=== PATIENT | male | born 1960 | race Caucasian/White ===

== ENCOUNTER → 2018-01-26 | Outpatient (CLI) | payer OTHER ==
[2018-01-26 18:36] LABS: ALT/SGPT 38 U/L (12-78); BLOOD UREA NITROGEN 13 mg/dl (7-18); CALCIUM 8.9 mg/dl (8.5-10.1); CARBON DIOXIDE 27 mmol/L (21-32); CREATININE 0.88 mg/dl (0.60-1.40); GLUCOSE 339 mg/dl (70-99); POTASSIUM 3.7 mmol/L (3.5-5.1); SODIUM 137 mmol/L (136-145)
[2018-01-26 18:42] LABS: CREATININE RANDOM URINE 86.3 mg/dl
[2018-01-26 18:46] LABS: CHOLESTEROL 138 mg/dl (0-200)
[2018-01-27 06:57] LABS: HEMOGLOBIN A1C 11.3 % (4.5-5.6)
== END | disposition home or self-care (01) ==
LOC: C.LABMFLN 11:14
PROVIDERS: ATTEND Family Medicine
DX: E11.9 Type 2 diabetes mellitus without complications (principal); E78.5 Hyperlipidemia, unspecified; F41.8 Other specified anxiety disorders; I10 Essential (primary) hypertension

== ENCOUNTER 2025-05-07 06:25 | Inpatient (IN) ==
--- NOTE | 2025-04-26 10:27 | Anesthesiology Consultation ---
Date of Service April 26, 2025 Assessment & Plan Chart Review Chart Review: Acceptable Risk for Surgery and Patient NOT seen in Pre Admission Testing Consults Requested none History Surgery Operation Date: 05/07/25 08:00 Proposed Procedures p Bilateral Angio with Lower Iliac Stenting - Allen Slaughter MD s Bilateral Lower Common Femoral Endarterectomy - Allen Slaughter MD Height/Weight Height: 5 ft 11 in Weight: 90.718 kg Allergies Allergy/AdvReac Type Severity Reaction Status Date / Time clonazepam AdvReac Intermediate Hx Verified 04/22/25 13:43 addiction gabapentin AdvReac Intermediate Weakness, Uncoded 04/22/25 13:43 fall, brain fog on 600mg QID Medications Home Medications Medication Instructions Recorded Confirmed Last Taken aspirin 81 mg tablet 81 mg PO DAILY 05/08/19 04/22/25 02/28/25 tadalafil 20 mg tablet (Cialis) 20 mg PO DAILY PRN sexual activity 02/03/22 04/22/25 Unknown #14 tabs blood sugar diagnostic (OneTouch #100 ea 02/18/22 02/13/25 Unknown Verio test strips) blood-glucose meter (OneTouch #1 ea 02/18/22 02/13/25 Unknown Verio Meter) glipizide 10 mg tablet, extended 10 mg PO DAILY #90 tabs 03/09/24 04/22/25 Unknown release 24 hr lancets 33 gauge #100 ea 03/09/24 02/13/25 Unknown paroxetine HCl 40 mg tablet 80 mg (2 x 40 mg) PO DAILY #180 05/08/24 04/22/25 Unknown tabs nitroglycerin 0.4 mg sublingual 0.4 mg sublingual Q5M PRN chest 06/29/24 04/22/25 Unknown tablet pain #20 tabs semaglutide 0.25 mg or 0.5 mg (2 0.25 mg (0.368 mL) subcut Q7D 90 08/13/24 04/22/25 Unknown mg/3 mL) subcutaneous pen injector days #4.784 mL insulin degludec 100 unit/mL (3 60 unit (0.6 mL) subcut DAILY 12/28/24 04/22/25 Unknown mL) subcutaneous pen (Tresiba E11.9 #15 mL FlexTouch U-100 insulin) pen needle, diabetic 32 gauge x #100 ea 12/31/24 02/13/25 Unknown 5" (BD Ultra-Fine Jacinta Pen Needle) cilostazol 50 mg tablet 50 mg PO BID #180 tabs 03/06/25 04/22/25 Unknown omeprazole 40 mg capsule,delayed 40 mg PO DAILY #90 caps 03/13/25 04/22/25 Unknown release clopidogrel 75 mg tablet 75 mg PO DAILY #90 tabs 03/14/25 04/22/25 Unknown rosuvastatin 40 mg tablet 40 mg PO DAILY #90 tabs 03/14/25 04/22/25 Unknown hydroxyzine pamoate 50 mg capsule 50 mg PO TID PRN anxiety #270 caps 03/20/25 04/22/25 Unknown varenicline tartrate 0.5 mg (11)-1 1 ea PO .COMPLEX #53 ea 03/29/25 04/22/25 Unknown mg (42) tablets in a dose pack varenicline tartrate 1 mg tablet 1 mg PO BID #56 tabs 03/29/25 04/22/25 Unknown tizanidine 6 mg capsule 6 mg PO HS #90 caps 04/12/25 04/22/25 Unknown hydrocodone 5 mg-acetaminophen 325 1 tab PO Q8H PRN pain #90 tabs 04/16/25 04/22/25 Unknown mg tablet lisinopril 40 mg tablet 40 mg PO DAILY #90 tabs 04/17/25 04/22/25 Unknown metformin 850 mg tablet 850 mg PO BID 04/22/25 04/22/25 Unknown carvedilol 25 mg tablet 25 mg PO BID #180 tabs 04/23/25 Unknown Past Medical History Medical History (Updated 04/22/25 @ 14:19 by Crista Lang RN) On anticoagulant therapy Plavix daily Dyslipidemia Acid reflux disease CAD in [place] artery Depression with anxiety Diabetic neuropathy HTN (hypertension) Splenic hemorrhage pt denies this/ not aware Osteoarthritis Thoracic radiculopathy due to osteoarthritis of spine Presence of stent in LAD coronary artery Presence of stent in left circumflex coronary artery Diabetes PAD (peripheral artery disease) Restless legs syndrome (RLS) History of shingles ~2020 Hx of myocardial infarction 2004 and 2005 Asthma no inhalers Left rib fracture hx ~2019 Past Family History Family History Brother Myocardial infarction Son Asthma Depression Anxiety Denies family history of Ovarian cancer Prostate cancer Diabetes Alzheimer disease Bipolar disorder Heart disease Kidney disease Breast cancer Lung cancer COPD (chronic obstructive pulmonary disease) Colorectal cancer Hypertension Colonic polyp Stroke Past Surgical History Surgical History S/P right coronary artery (RCA) stent placement History of tonsillectomy and adenoidectomy History of cardiac cath following [place]- 2003 x 2 stents and 2004 x 1 stent - [facility] History of coronary artery stent placement Follows w/ Dr Smith Social History Smoking Status: Current every day smoker tobacco type: cigarettes Smoking cigarettes per day: 10 per day - advised Do You Dip or Chew Tobacco: No Hx Alcohol Use: No Hx Substance Use: No substance use type: does not use
[2025-05-07] MEDS ORDERED: fentaNYL citrate PF 100 MCG/2 ML VIAL ONE ×3 (07:06→13:10)
[2025-05-07] MEDS: SODIUM CHLORIDE 0.9% 1,000 ML IV SCH ×2 (07:06→16:18)
[2025-05-07] MEDS ORDERED: ROCURONIUM BROMIDE 10 MG/ML 5 ML VIAL IV ONE (07:06)
[2025-05-07] MEDS ORDERED: MIDAZOLAM HCL 1 MG/ML 2ML VIAL ONE (07:06)
[2025-05-07] MEDS ORDERED: GLYCOPYRROLATE 0.2 MG/ML VIAL ONE (07:06)
[2025-05-07] MEDS ORDERED: DEXAMETHASONE SOD INJ 4 MG/ML VIAL ONE (07:06)
[2025-05-07] MEDS ORDERED: PROPOFOL IV EMULSION 10 MG/ML 20 ML VIAL IV ONE (07:06)
[2025-05-07] MEDS ORDERED: SUGAMMADEX SODIUM 200 MG/2 ML VIAL IV ONE (07:06)
[2025-05-07] MEDS ORDERED: ONDANSETRON INJ 2 MG/ML 2 ML VIAL ONE (07:06)
[2025-05-07] MEDS ORDERED: LIDOCAINE 2% 2 ML VIAL/AMP(20MG/ML) INFIL ONE (07:06)
[2025-05-07 07:12] LABS: BUN Creatinine Ratio 11.4 (10-20); Calcium 9.2 mg/dl (8.6-10.3); Creatinine Clr Calc Pharmacy 112.2 ml/min; Potassium 3.9 mmol/L (3.5-5.1)
--- NOTE | 2025-05-07 07:43 | History & Physical Report ---
Date of Service May 07, 2025 History of Present Illness Primary Care Provider: Cristiano Borrero DO Name: JAZ MAURICIO Patient Number: [id number] : 1960 Date of Service: 04/10/2025 Chief Complaint: _New patient consultation for peripheral arterial disease and aortoiliac disease HPI: _Mr. Mauricio is an elderly male who presents to Dr. Slaughter vascular surgery clinic today as a new patient in consultation for severe peripheral arterial disease and aortoiliac disease causing lifestyle limiting claudication. Patient states that he began having symptoms about 18 months ago. He describes this as a tightness/pain in his left calf which then migrates into his left thigh as well if continues ambulating. He has some discomfort in his right hip around the same time, but feels that his left leg is more limiting. He is able to ambulate less than 50 yards before needing to stop. He lives in a second story apartment, and has stopped leaving his apartment more than once a day due to having to climb 2 sets of stairs and the pain that he knows this will cause. After resting for 5 minutes or so, he is able to ambulate again. He has found this to be very limiting and his overall activity has significantly decreased. He smoked 2 packs a day for most of his adult life, and has only recently reduced that down to 10 cigarettes daily. He was started on cilostazol, but has not had any improvement with this medication. He denies nonhealing wounds or ulcerations, discoloration of his feet or toes, or rest pain at night. He denies headache, fever, chest pain, shortness of breath, abdominal pain, nausea, vomiting, other concerns. Review of systems: A total of 14 systems were reviewed and are negative aside from what is related in his HPI Imaging: Patient's CTA abdomen pelvis with runoff done at [facility] in December 2024 was reviewed, as well as his recent diagnostic aortogram/angiogram of the bilateral lower extremities. Images appear to confirm a proximal right common iliac artery stenosis, and bilateral common femoral artery severe stenoses, significantly worse in the left than the right. He does have bilateral SFA disease as well. Additionally he has two-vessel runoff to the feet. Current Home Meds: (Last Updated 04/10 08:00) PARoxetine 80 mg PO Daily HAZARDOUS MEDICATION | tablet: green | suspension: duane Lazaro 04/09 16:03 acetaminophen-hydrocodone (acetaminophen-hydrocodone 325 mg-5 mg oral tablet) 1 tab PO tid PRN: as needed for pain aspirin (aspirin 81 mg oral delayed release tablet) 81 mg PO Daily carvedilol 25 mg PO bid cilostazol (cilostazol 50 mg oral tablet) 50 mg PO bid clopidogrel (clopidogrel 75 mg oral tablet) 75 mg PO Daily glipiZIDE (glipiZIDE 10 mg oral tablet, extended release) 10 mg PO Daily hydrOXYzine 50 mg PO tid PRN: as needed for anxiety insulin degludec (Tresiba FlexTouch 100 units/mL subcutaneous solution) 60 unit subQ Daily lisinopril 40 mg PO Daily metFORMIN 850 mg PO bid nitroglycerin 0.4 mg SL q5min PRN: as needed for chest pain omeprazole 40 mg PO Daily rOPINIRole (rOPINIRole 0.25 mg oral tablet) 0.25 mg PO Daily rosuvastatin (rosuvastatin 10 mg oral tablet) 40 mg PO Daily semaglutide (semaglutide 0.25 mg/0.5 mL (0.25 mg dose) subcutaneous solution) 0.25 mg subQ q7days Wegovy tadalafil (tadalafil 20 mg oral tablet) 20 mg PO Daily PRN: as needed for erectile dysfunction tiZANidine 6 mg PO Daily traZODone 200 mg PO Daily Allergies and Sensitivities: gabapentin(weakness, fall) clonazePAM(addiction) Past Medical History: Problems: Aortoiliac stenosis Hypertension Hyperlipidemia Diabetes mellitus Tobacco abuse CAD (coronary artery disease) PAD (peripheral artery disease) Gastroesophageal reflux disease hypercholesterolemia Surgical history: Positive for cardiac catheterization with stent placement in 2004, tonsillectomy adenoidectomy Family history: Positive for brother with myocardial infarction, a son with asthma and depression/anxiety. His mother did have peripheral arterial disease and ended up with a leg amputation. Social history: Patient continues to smoke cigarettes daily, at this point smoking 10 cigarettes/day, previously smoking 2 packs a day. He denies alcohol or illicit drug use. He is currently and lives alone and is on disability. OBJECTIVE Vitals: Last Updated 04/10/25 08:09 Date Temp BP Location Pulse RR SpO2 Pain 04/10/25 134/80 Right Arm 61 94 04/10/25 150/78 Left Arm Vital Signs are the last 3 documented. No Orthostatic Data Available Height and Weight: Last Updated 04/10/25 08:09 Date BMI Wt(kg) Wt(lb) Method Ht(cm) (ft-in) Method 04/10/25 29.15 93.4 205 Standing Scale 179 5-10 Heights and Weights are the last 3 documented. Physical Exam Constitutional: In general patient is a healthy-appearing well-nourished well- developed elderly male in no distress. He is alert and oriented without any focal deficits. Head is normocephalic and atraumatic. Eyes are EOMI. Trachea is midline. Carotids do not demonstrate bruit. Heart is regular, lungs are decreased significantly throughout but clear bilaterally. Abdomen soft nontender with normoactive bowel sounds in all 4 quadrants. There is no pulsatile mass appreciable. Bilateral brachial and radial pulses are +3. Femoral pulses are nonpalpable, bilateral lower extremity pulses are nonpalpable. Right lower extremity capillary refill is 3 seconds, left lower extremity capillary refill is 5 seconds. He does continue to have hair growth on the feet bilaterally and there is no sign of distal ischemia or ulcerations. There is no edema ASSESSMENT: _ PLAN: _ 1 ) _peripheral arterial disease Patient does have severe femoral artery disease, with stenoses at his common femoral artery/proximal SFA's, which would likely benefit from femoral endarterectomies. Additionally he has a significant stenosis of his right common iliac artery on imaging. We would recommend that this undergo stenting, with the possibility to do bilateral kissing iliac stents if needed. Patient is in the office today with a family member. The bilateral SADDLE MAKER endarterectomy and angiogram with bilateral iliac stent placement procedure was discussed at length with the patient, as were the benefits, alternatives, and consequences of refusing the surgery. The risks of this procedure including but not limited to bleeding, infection, need for further surgery, vessel trauma, blood clots, loss of limb, , heart attack, reaction to medication or dye including allergic reaction or kidney failure, were discussed with the patient by myself at Dr. Slaughter's request. Patient expressed understanding and agreement to proceed. This will be scheduled in the near future at the patient's convenience. 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 Patient is advised to call with any questions or concerns. He is agreeable to this plan. Thank you for letting us participate in the care of this patient. I have personally spent_50__ minutes performing [id number] and [id number]-cgtt-fl-face activities on this date of service.Time does not include separately reported services. Activities Include: _x_ review of the medical record _x_ obtaining a history _x_ physical exam/evaluation __ review labs _x_ review radiology reports _x_ counseling/educating patient/family/caregiver _x_ discussion/referral to other healthcare professional x__ documenting care in the medical record __ independent interpretation of results __ communication of results to patient/family/caregiver _x_ coordination of care Signature Line Electronic Signature on File CC: Cristiano Borrero DO [facility] [address] [facility] [address] * CC: Balbir Viramontes MD [address] [facility] [address] * CC: Cielo Bone PA-C [facility] [address] [place] [address] [address] [facility] [id number] * Electronically Reviewed/Signed by: Torie Weston PA-C Author Signature Dt/Tm:04/10/2025 09:[address] [facility] [place] [place] [address] LM Result Type: HVI Outpt Note Date of Service: April 10, 2025 08:55 EDT Authorization Status: Final Author or Import Date: JONES Weston Lynn on April 10, 2025 09:12 EDT Verified By: JONES Weston Lynn on April 10, 2025 09:12 EDT Encounter info: [id number], [place] [address], Clinic, 04/10/2025 - 04/10/2025 Allergies Allergy/AdvReac Type Severity Reaction Status Date / Time clonazepam AdvReac Intermediate Hx Verified 05/07/25 06:47 addiction gabapentin AdvReac Intermediate Weakness, Uncoded 05/07/25 06:47 fall, brain fog on 600mg QID Home Medications Medication Instructions Recorded Confirmed Type aspirin 81 mg tablet 81 mg PO DAILY 05/08/19 05/07/25 History tadalafil 20 mg tablet (Cialis) 20 mg PO DAILY PRN sexual activity 02/03/22 05/07/25 Rx #14 tabs blood sugar diagnostic (OneTouch #100 ea 02/18/22 02/13/25 Rx Verio test strips) blood-glucose meter (OneTouch #1 ea 02/18/22 02/13/25 Rx Verio Meter) glipizide 10 mg tablet, extended 10 mg PO DAILY #90 tabs 03/09/24 05/07/25 Rx release 24 hr lancets 33 gauge #100 ea 03/09/24 02/13/25 Rx paroxetine HCl 40 mg tablet 80 mg (2 x 40 mg) PO DAILY #180 05/08/24 05/07/25 Rx tabs nitroglycerin 0.4 mg sublingual 0.4 mg sublingual Q5M PRN chest 06/29/24 05/07/25 Rx tablet pain #20 tabs semaglutide 0.25 mg or 0.5 mg (2 0.25 mg (0.368 mL) subcut Q7D 90 08/13/24 Rx mg/3 mL) subcutaneous pen injector days #4.784 mL insulin degludec 100 unit/mL (3 60 unit (0.6 mL) subcut DAILY 12/28/24 05/07/25 Rx mL) subcutaneous pen (Tresiba E11.9 #15 mL FlexTouch U-100 insulin) pen needle, diabetic 32 gauge x #100 ea 12/31/24 02/13/25 Rx 5/32" (BD Ultra-Fine Jacinta Pen Needle) cilostazol 50 mg tablet 50 mg PO BID #180 tabs 03/06/25 05/07/25 Rx omeprazole 40 mg capsule,delayed 40 mg PO DAILY #90 caps 03/13/25 05/07/25 Rx release clopidogrel 75 mg tablet 75 mg PO DAILY #90 tabs 03/14/25 05/07/25 Rx rosuvastatin 40 mg tablet 40 mg PO DAILY #90 tabs 03/14/25 05/07/25 Rx hydroxyzine pamoate 50 mg capsule 50 mg PO TID PRN anxiety #270 caps 03/20/25 05/07/25 Rx varenicline tartrate 0.5 mg (11)-1 1 ea PO .COMPLEX #53 ea 03/29/25 05/07/25 Rx mg (42) tablets in a dose pack varenicline tartrate 1 mg tablet 1 mg PO BID #56 tabs 03/29/25 05/07/25 Rx tizanidine 6 mg capsule 6 mg PO HS #90 caps 04/12/25 05/07/25 Rx hydrocodone 5 mg-acetaminophen 325 1 tab PO Q8H PRN pain #90 tabs 04/16/25 05/07/25 Rx mg tablet lisinopril 40 mg tablet 40 mg PO DAILY #90 tabs 04/17/25 05/07/25 Rx metformin 850 mg tablet 850 mg PO BID 04/22/25 05/07/25 History carvedilol 25 mg tablet 25 mg PO BID #180 tabs 04/23/25 05/07/25 Rx Past Med/Surg History Problem List (Updated 04/22/25 @ 14:19 by Crista Lang, [place]) PAD (peripheral artery disease) Claudication Bilateral calf pain Foot callus Type 2 diabetes mellitus with hyperlipidemia Tobacco use disorder Subacromial bursitis of both shoulders Left elbow pain Left hand pain Right hand pain Low back pain Presence of stent in left circumflex coronary artery Presence of stent in LAD coronary artery S/P right coronary artery (RCA) stent placement Subacromial bursitis of left shoulder joint Post herpetic neuralgia Herpes zoster virus infection of face and ear nerves Thoracic radiculopathy due to osteoarthritis of spine (Acute) Splenic hemorrhage (Acute) Restless legs syndrome (Acute) Pulpitis (Acute) Left shoulder pain (Acute) Inhibited sexual excitement (Acute) Hypertension (Acute) Erectile dysfunction (Acute) Diabetic neuropathy (Acute) Depression with anxiety (Acute) CAD in [place] artery (Acute) Acid reflux disease (Acute) Abnormal MRI of abdomen (Acute) Medical History (Updated 04/22/25 @ 14:19 by Crista Lang RN) On anticoagulant therapy Plavix daily Dyslipidemia Acid reflux disease CAD in [place] artery Depression with anxiety Diabetic neuropathy HTN (hypertension) Splenic hemorrhage pt denies this/ not aware Osteoarthritis Thoracic radiculopathy due to osteoarthritis of spine Presence of stent in LAD coronary artery Presence of stent in left circumflex coronary artery Diabetes PAD (peripheral artery disease) Restless legs syndrome (RLS) History of shingles ~2020 Hx of myocardial infarction 2003 and 2004 Asthma no inhalers Left rib fracture hx ~2019 Surgical History S/P right coronary artery (RCA) stent placement History of tonsillectomy and adenoidectomy History of cardiac cath following [place]- 2003 x 2 stents and 2004 x 1 stent - [facility] History of coronary artery stent placement Follows w/ Dr Smith Family History Brother Myocardial infarction Son Asthma Depression Anxiety Denies family history of Ovarian cancer Prostate cancer Diabetes Alzheimer disease Bipolar disorder Heart disease Kidney disease Breast cancer Lung cancer COPD (chronic obstructive pulmonary disease) Colorectal cancer Hypertension Colonic polyp Stroke Social History Smoking Status: Current every day smoker Tobacco Type: Cigarettes Age Started Using Tobacco: 40; packs per day: 0; Cigarettes Per Day: 10 per day - advised; Second Hand Exposure: Yes (hx); Do You Dip or Chew Tobacco: No; Tobacco Cessation Education Requested by Patient: No Hx Alcohol Use: No Hx Substance Use: No Preferred Language: Latvian Communication Ability: Effective Visual Impairment: No Limitations Hearing Ability: Normal Skiing Teacher Required: No Beliefs That Will Affect Care: None marital status: Current Living Situation: Alone current occupational status: disabled How many Children do You have: 3 Other Information That Helps Us Care for You: No Feels Safe at Home: Yes Safety Concerns: Feels Safe At This Time Childhood Exposure to Second-Hand Smoke: Yes Diet: regular caffeine: Yes during the past year weight has: remained stable Dental Care, Regularly: Yes Physical Activity Frequency: 3-4 Times per Week Seatbelt Use: always Sunscreen Use: Yes Gender Identity: Male Assistive Devices: Glasses Results & Data Vital Signs (Past 12 Hours) Vital Signs Temp Pulse Resp BP BP Pulse Ox O2 Del Method 05/07/25 06:36 36.8 C 60 18 166/87 H 179/92 H 93 Room Air
--- NOTE | 2025-05-07 07:43 | History & Physical Bridge Note ---
Date of Service May 07, 2025 History & Physical Bridge Note I have examined the patient, reviewed the History & Physical and in the interval since the performance of the History & Physical I have noted the following changes of clinical significance: no changes noted
[2025-05-07] MEDS: ceFAZolin 2000MG 2,000 MG/15 ML SYR IV SCH ×2 (09:18→16:56)
[2025-05-07] MEDS ORDERED: PROTAMINE SULFATE 10 MG/ML 5 ML VIAL IV ONE (10:00)
[2025-05-07] MEDS ORDERED: HEPARIN SOD (PORCINE) 1000 UNIT/ML ONE ×2 (10:00→11:02)
[2025-05-07] MEDS ORDERED: PROMETHAZINE HCL 6.25 MG in SODIUM CHLORIDE 0.9% 50 ML IV PRN (10:37)
[2025-05-07] MEDS ORDERED: ONDANSETRON INJ 2 MG/ML 2 ML VIAL IV PRN ×2 (10:37→15:21)
[2025-05-07] MEDS ORDERED: HYDROmorphone INJ 1 MG/ML SYRINGE IV PRN (10:37)
[2025-05-07] MEDS ORDERED: ATROPINE SULFATE 0.1 MG/ML 10ML SYR IV PRN (10:37)
[2025-05-07] MEDS ORDERED: FLUMAZENIL 0.1 MG/1 ML 10 ML VIAL IV PRN (10:37)
[2025-05-07] MEDS ORDERED: NALOXONE HCL 0.4 MG/1 ML VIAL/CARP IV PRN (10:37)
[2025-05-07] MEDS ORDERED: ePHEDrine sulfate 50 MG/ML AMP IV PRN (10:37)
[2025-05-07] MEDS ORDERED: fentaNYL citrate PF 100 MCG/2 ML VIAL IV PRN (10:37)
[2025-05-07] MEDS: GELATIN SPONGE SZ 100 ONE (12:54)
[2025-05-07] MEDS: VISIPAQUE IV ONE (13:01)
[2025-05-07] MEDS: THROMBIN FOR SOLN 20000 UNIT KIT ONE (13:02)
[2025-05-07] MEDS: ceFAZolin 330 MG/ML 1 GM VIAL ONE (13:05)
[2025-05-07] MEDS: HEPARIN (PORCINE) 1000 UNIT/ML 10 ML (CATH LAB USE ONLY) ONE (13:05)
--- NOTE | 2025-05-07 13:10 | Procedure Note ---
Angiogram Post Procedure Fluoroscopy Time (minutes): 3.2 Radiation (mGy): 132 Contrast: 70 Post Operative Report Pre & Post Diagnosis Operation Date: 05/07/25 09:00 Pre-Op Diagnosis: Aortoiliac Occlusive Disease Peripheral Arterial Disease Post-Op Diagnosis: Aortoiliac Occlusive Disease Peripheral Arterial Disease I identified the patient and participated in the time-out.: Yes Procedure Operation Date: 05/07/25 09:00 Actual Procedures p Bilateral Angiography with Iliac Stenting(Bilateral), Ultrasound localization of left common femoral artery - Allen Slaughter MD s Right Common and Superficial Femoral Artery Endarterectomy with Bovine Patch, Left Common, Superficial, and Profunda Femoral Artery Endarterectomy with Bovine Patch(Bilateral) - Allen Slaughter MD Surgeon Allen Slaughter MD Division Order Analyst [employer] Estimated Blood Loss 500 Findings Consistent with Post-Op Diagnosis Specimens none Anesthesia Type General Complications none Disposition Accompanied Patient To Recovery: No Disposition: Recovery Room Indications This is a 65 year-old male with significant claudication of bilateral lower extremities. He was found to have bilat iliac occlusive and right common femoral artery occlusive disease. Bilateral iliac stenting and endart of the right common femoral artery was recommended. I have discussed the risks options and benefits of the procedure with the patient. The patient understands the risks options and benefits and agrees to the procedure. Description of Procedure The patient was taken to the operating room and placed supine position. Both groins were then prepped and draped in a sterile manner. Timeout was performed and the patient was identified. Using ultrasound the left common femoral artery was identified. It was patent with mild plaque. Percutaneous puncture was then made of the left common femoral artery under ultrasound guidance and a 5 Austrian sheath inserted. Next the cutdown was made on the right side exposing the common femoral superficial and profundofemoral arteries. They were heavily calcified. We were able to puncture the proximal right common femoral artery and inserted a 5 Austrian sheath. Guidewires were then inserted through the sheath on the left side. Arteriogram performed showed bilateral common iliac artery stenoses. We then passed a wire up the right side. The catheter in the left groin was then removed over a wire. The 5 Austrian sheath were exchanged for 7 Austrian sheath. We then inserted an 8 x 39 VBX on the right and an 8 x 29 VBX on the left. They were deployed without difficulty completion angio showed widely patent common iliac arteries the sheath in the left groin was then closed using a Star closure device. On the right side the common femoral profunda and superficial femoral arteries were clamped and sheath removed. We then performed an arteriotomy on the common femoral artery extending downward both over the superficial femoral and profundofemoral artery endarterectomy was performed of these vessels. The distal ends of the endarterectomy sites were tacked down with 7-0 Prolene sutures. We then used a bovine patch and cut it in an inverse Y fashion. This was used to close the arteriotomy in the femoral artery on the right side. This was done using 5-0 Prolene suture. Once this was completed the clamps were removed. Excellent flow was seen through both the superficial and profundofemoral arteries. Adequate hemostasis was then obtained. After adequate hemostasis was noted the wound was closed in usual fashion using running 3-0 Vicryl suture for the subcutaneous layer and 2-0 Vicryl for the femoral sheath. Woodrow were used for the skin incision. Sterile dressing applied to the wound.The patient left the operation room in satisfactory condition and tolerated the procedure well. All needle and sponge counts were correct at the end of the procedure. Torie Weston Pac assisted due to lack of resident availability and was necessary for positioning, draping, retraction, wound closure deep layers, subcutaneous tissue, and skin closure and was necessary for assisting with the case. I attest to the content of the Intraoperative Record and any orders documented therein. Any exceptions are noted below.
[2025-05-07 14:35] LABS: Basophils # (auto) 0.07 K/uL (0.00-0.20); Basophils % (auto) 0.4 %; Eosinophils # (auto) 0.07 K/uL (0.00-0.50); Eosinophils % (auto) 0.4 %; Hematocrit (blood only) 36.7 % (42.0-52.0); Hemoglobin 12.5 g/dl (14.0-18.0); Immature Granulocytes # (auto) 0.16 K/uL (0.01-0.20); Immature Granulocytes % (auto) 0.9 %; Lymphocytes # (auto) 1.56 K/uL (1.20-3.40); Lymphocytes % (auto) 9.1 %; Mean Corpuscular Hemoglobin 30.1 pg (25.0-34.0); Mean Corpuscular Hgb Conc 34.1 g/dL (32.0-36.0); Mean Corpuscular Volume 88.4 fL (80.0-100.0); Mean Platelet Volume 8.6 fL (9.4-12.4); Monocytes # (auto) 0.28 K/uL (0.11-0.59); Monocytes % (auto) 1.6 %; Neutrophils # (auto) 14.98 K/uL (1.40-6.50); Neutrophils % (auto) 87.6 %; Platelet Count 198 K/uL (130-400); RDW Coefficient of Variation 13.8 % (11.5-14.5); RDW Standard Deviation 44.5 fL (36.4-46.3); Red Blood Count 4.15 M/uL (4.70-6.10); White Blood Count 17.12 K/ul (4.8-10.8)
--- NOTE | 2025-05-07 14:39 | Anesthesiology Progress Note ---
Date of Service May 07, 2025 Anesthesia Post Procedure Vital Signs Vital Signs: Temp Pulse Pulse Resp BP BP Pulse Ox 05/07/25 14:35 85 18 149/85 H 92 05/07/25 14:25 82 20 141/87 H 92 05/07/25 14:15 83 18 144/82 H 92 05/07/25 14:05 83 18 136/92 92 05/07/25 13:55 83 18 150/86 H 92 05/07/25 13:48 36.4 C L 84 12 155/93 H 94 05/07/25 06:36 36.8 C 60 18 166/87 H 179/92 H 93 O2 Del Method O2 Flow Rate 05/07/25 14:35 Oxymask 6 05/07/25 14:25 Oxymask 10 05/07/25 14:15 Oxymask 12 05/07/25 14:05 Oxymask 12 05/07/25 13:55 Oxymask 15 05/07/25 13:48 Oxymask 15 05/07/25 06:36 Room Air Transfer of Care Handoff Completed per policy Notes Mental Status: alert / awake / arousable and participated in evaluation Patient Amnestic to Procedure: Yes Nausea / Vomiting: adequately controlled Pain: adequately controlled Airway Patency, RR, SpO2: stable & adequate BP & HR: stable & adequate Hydration State: stable & adequate Anesthetic Complications: no major complications apparent and Pt Satisfied with anesthetic care
[2025-05-07] MEDS ORDERED: HYDROCODONE/ACETAMOPHEN 5/325MG TAB PO PRN (15:21)
[2025-05-07] MEDS ORDERED: PHARMACY GLYCEMIC MGMT CONSULT PRN (15:21)
[2025-05-07] MEDS ORDERED: NITROGLYCERIN SL 0.4 MG/TAB TAB SL PRN (15:21)
[2025-05-07] MEDS ORDERED: GLUCOSE 40% GEL 15 GM TUBE PO PRN (16:00)
[2025-05-07] MEDS ORDERED: CARBOHYDRATES FOR HYPOGLYCEMIA PO PRN (16:00)
[2025-05-07] MEDS ORDERED: GLUCOSE 10 TAB/TUBE PO PRN (16:00)
[2025-05-07] MEDS ORDERED: DEXTROSE 50% 50 ML SYRINGE IV PRN (16:00)
[2025-05-07] MEDS ORDERED: GLUCAGON FOR INJ 1 MG VIAL SQ PRN (16:00)
--- NOTE | 2025-05-07 16:11 | Critical Care Consultation ---
Date of Consultation May 07, 2025 Assessment & Plan (1) PAD (peripheral artery disease): (2) Claudication: (3) Type 2 diabetes mellitus with hyperlipidemia: (4) Tobacco use disorder: (5) Acid reflux disease: (6) Hypertension: (7) Dyslipidemia: (8) Hypoxia: Plan --Peripheral vascular disease On cilostazol 50 twice daily as well as Plavix 75 mg at home S/p bilateral iliac stenting and bilateral femoral endarterectomy with bovine patch on 05/07/[address] Slaughter --Hypoxia Likely likely postop atelectasis Incentive spirometry and oxygen supplementation to keep O2 saturation between 88-92% --Diabetes type 2 Continue with ICU hypoglycemia protocol -- Hypertension On lisinopril 40 as well as Coreg 25 at home -- Coronary artery disease S/p stent back in 2004 On Plavix --Normocytic anemia Monitor H&H --Current smoker > [id number] smoking history, currently smoking half a pack a day Would recommend outpatient PFT as well as screening CAT scan of the chest if not already done --Prophylaxis VTE: None GI: Pantoprazole Lines: Peripheral Diet: Cardiac diabetic Plan: Strict ins and outs Monitor for any signs of bleeding Pain management Periop antibiotics as per vascular surgery Incentive spirometry and oxygen supplementation to keep O2 saturation between 88-92% I spent more than 60 minutes looking in the chart, images, discussing the plan of care with the patient, RN as well as primary team Please note the above document was generated using voice recognition software. It may contain grammatical, syntax or spelling errors.Any formal questions or concerns about the content, text or information contained within the body of this dictation should be directly addressed to the provider for clarification. History of Present Illness Attending Physician: Allen Slaughter MD History of Present Illness 64-year-old male came to the hospital for bilateral iliac stenting and endarterectomy. Sent to ICU for further care Past medical history: Diabetes, dyslipidemia, peripheral vascular disease, hypertension, active smoker, coronary artery disease s/p stent back in 2004 At the time of examination patient was saturating 89% on room air. When he was put on 4 L oxygen saturation went up to 94-95% I went down her oxygen to 2 L Systolic blood pressure was in the high 150s. Heart rate in the low 90s to high 80s. He complained of mild discomfort at the site of the going. Denied any chest pain, no shortness of breath Does not use any oxygen at home. Usually does not have any issues when it comes to his breathing. Is his leg pain which causes him to stop. No fever or chills Denies any night sweats No unintentional weight loss Denies any snoring at night. Social history: Approximately [id number] smoking history, currently smoking half a pack a day Allergies Allergy/AdvReac Type Severity Reaction Status Date / Time clonazepam AdvReac Intermediate Hx Verified 05/07/25 06:47 addiction gabapentin AdvReac Intermediate Weakness, Uncoded 05/07/25 06:47 fall, brain fog on 600mg QID Home Medications Medication Instructions Recorded Confirmed Type aspirin 81 mg tablet 81 mg PO DAILY 05/08/19 05/07/25 History tadalafil 20 mg tablet (Cialis) 20 mg PO DAILY PRN sexual activity 02/03/22 05/07/25 Rx #14 tabs blood sugar diagnostic (OneTouch #100 ea 02/18/22 02/13/25 Rx Verio test strips) blood-glucose meter (OneTouch #1 ea 02/18/22 02/13/25 Rx Verio Meter) glipizide 10 mg tablet, extended 10 mg PO DAILY #90 tabs 03/09/24 05/07/25 Rx release 24 hr lancets 33 gauge #100 ea 03/09/24 02/13/25 Rx paroxetine HCl 40 mg tablet 80 mg (2 x 40 mg) PO DAILY #180 05/08/24 05/07/25 Rx tabs nitroglycerin 0.4 mg sublingual 0.4 mg sublingual Q5M PRN chest 06/29/24 05/07/25 Rx tablet pain #20 tabs semaglutide 0.25 mg or 0.5 mg (2 0.25 mg (0.368 mL) subcut Q7D 90 08/13/24 05/07/25 Rx mg/3 mL) subcutaneous pen injector days #4.784 mL insulin degludec 100 unit/mL (3 60 unit (0.6 mL) subcut DAILY 12/28/24 05/07/25 Rx mL) subcutaneous pen (Tresiba E11.9 #15 mL FlexTouch U-100 insulin) pen needle, diabetic 32 gauge x #100 ea 12/31/24 02/13/25 Rx 32" (BD Ultra-Fine Jacinta Pen Needle) cilostazol 50 mg tablet 50 mg PO BID #180 tabs 03/06/25 05/07/25 Rx omeprazole 40 mg capsule,delayed 40 mg PO DAILY #90 caps 03/13/25 05/07/25 Rx release clopidogrel 75 mg tablet 75 mg PO DAILY #90 tabs 03/14/25 05/07/25 Rx rosuvastatin 40 mg tablet 40 mg PO DAILY #90 tabs 03/14/25 05/07/25 Rx hydroxyzine pamoate 50 mg capsule 50 mg PO TID PRN anxiety #270 caps 03/20/25 05/07/25 Rx varenicline tartrate 0.5 mg (11)-1 1 ea PO .COMPLEX #53 ea 03/29/25 05/07/25 Rx mg (42) tablets in a dose pack varenicline tartrate 1 mg tablet 1 mg PO BID #56 tabs 03/29/25 05/07/25 Rx tizanidine 6 mg capsule 6 mg PO HS #90 caps 04/12/25 05/07/25 Rx hydrocodone 5 mg-acetaminophen 325 1 tab PO Q8H PRN pain #90 tabs 04/16/25 05/07/25 Rx mg tablet lisinopril 40 mg tablet 40 mg PO DAILY #90 tabs 04/17/25 05/07/25 Rx metformin 850 mg tablet 850 mg PO BID 04/22/25 05/07/25 History carvedilol 25 mg tablet 25 mg PO BID #180 tabs 04/23/25 05/07/25 Rx Patient History Medical History (Updated 05/07/25 @ 16:27 by Muary Galindo MD, [facility]) On anticoagulant therapy Plavix daily Dyslipidemia Acid reflux disease CAD in [place] artery Depression with anxiety Diabetic neuropathy HTN (hypertension) Splenic hemorrhage pt denies this/ not aware Osteoarthritis Thoracic radiculopathy due to osteoarthritis of spine Presence of stent in LAD coronary artery Presence of stent in left circumflex coronary artery Diabetes PAD (peripheral artery disease) Restless legs syndrome (RLS) History of shingles ~2020 Hx of myocardial infarction 2004 and 2005 Asthma no inhalers Left rib fracture hx ~2019 Surgical History S/P right coronary artery (RCA) stent placement History of tonsillectomy and adenoidectomy History of cardiac cath following ID- 2004 x 2 stents and 2004 x 1 stent - [facility] History of coronary artery stent placement Follows w/ Dr Smith Family History Brother Myocardial infarction Son Asthma Depression Anxiety Denies family history of Ovarian cancer Prostate cancer Diabetes Alzheimer disease Bipolar disorder Heart disease Kidney disease Breast cancer Lung cancer COPD (chronic obstructive pulmonary disease) Colorectal cancer Hypertension Colonic polyp Stroke Social History Smoking Status: Current every day smoker Tobacco Type: Cigarettes Age Started Using Tobacco: 40; packs per day: 0; Cigarettes Per Day: 10 per day - advised; Second Hand Exposure: Yes (hx); Do You Dip or Chew Tobacco: No; Tobacco Cessation Education Requested by Patient: No Hx Alcohol Use: No Hx Substance Use: No Preferred Language: Eritrean Communication Ability: Effective Visual Impairment: No Limitations Hearing Ability: Normal Engraver Flatware Required: No Beliefs That Will Affect Care: None marital status: Current Living Situation: Alone current occupational status: disabled How many Children do You have: 3 Other Information That Helps Us Care for You: No Feels Safe at Home: Yes Safety Concerns: Feels Safe At This Time Childhood Exposure to Second-Hand Smoke: Yes Diet: regular caffeine: Yes during the past year weight has: remained stable Dental Care, Regularly: Yes Physical Activity Frequency: 3-4 Times per Week Seatbelt Use: always Sunscreen Use: Yes Gender Identity: Male Assistive Devices: Glasses Review of Systems 2 Review of Systems: All systems reviewed & are unremarkable except as noted in HPI & below Physical Exam 2 Physical Exam: Constitutional: No acute distress HEENT: EOMI, PERRLA Respiratory system: Decreased air entry bilaterally, no wheeze, no rhonchi, minimal crackles bilaterally CVS: S1-S2 positive, no murmurs or gallops Abdomen: Soft, nontender, nondistended, positive bowel sounds x4, obese Extremities: +2 pulses bilaterally radialis/right dorsalis pedis, +1 pulse left dorsalis pedis and posterior tibialis no cyanosis, no edema Neuro: Awake alert oriented x3 Psych: Normal mood and affect G/U: Positive Lakhani Bilateral groin wound VAC in place with no signs of bleeding Skin: no rashes, warm and dry Lymphatic: no cervical or axillary lymphadenopathy Results & Data Results & Data Vital Signs (Past 12 Hours) Vital Signs Temp Pulse Pulse Pulse Resp BP BP 05/07/25 15:51 89 16 05/07/25 15:31 05/07/25 15:30 87 18 05/07/25 15:30 153/84 H 05/07/25 15:28 36.5 C 05/07/25 15:21 05/07/25 15:15 86 21 130/95 05/07/25 14:45 86 16 125/82 05/07/25 14:35 85 18 149/85 H 05/07/25 14:25 82 20 141/87 H 05/07/25 14:15 83 18 144/82 H 05/07/25 14:05 83 18 136/92 05/07/25 13:55 83 18 150/86 H 05/07/25 13:48 36.4 C L 84 12 155/93 H 05/07/25 06:36 36.8 C 60 18 166/87 H BP Pulse Ox O2 Del Method O2 Flow Rate 05/07/25 15:51 92 Oxymask 3 05/07/25 15:31 Oxymask 3 05/07/25 15:30 92 05/07/25 15:30 05/07/25 15:28 05/07/25 15:21 Oxymask 3 05/07/25 15:15 92 05/07/25 14:45 92 Oxymask 6 05/07/25 14:35 92 Oxymask 6 05/07/25 14:25 92 Oxymask 10 05/07/25 14:15 92 Oxymask 12 05/07/25 14:05 92 Oxymask 12 05/07/25 13:55 92 Oxymask 15 05/07/25 13:48 94 Oxymask 15 05/07/25 06:36 179/92 H 93 Room Air Laboratory Results 05/07/25 13:56 05/07/25 06:38 Coding Level of Care Code 77220 INT INP/OBS CARE 2/55MIN Diagnoses PAD (peripheral artery disease) I73.9 Claudication I73.9 Type 2 diabetes mellitus with hyperlipidemia E11.69; E78.5 Tobacco use disorder F17.200 Acid reflux disease K21.9 Hypertension I10 Dyslipidemia E78.5 Hypoxia R09.02
[2025-05-07] MEDS: MoRPHine SULFATE 4 MG/ML 1 ML CARP\\VIAL IV PRN (16:21)
[2025-05-07] MEDS: INSULIN ASPART PER UNIT CHARGE SC SCH ×2 (16:30→23:45)
[2025-05-07] MEDS: carvediloL 25 MG TAB PO SCH (19:36)
[2025-05-07] MEDS: cilostazoL 100 MG TAB PO SCH (19:37)
[2025-05-07] MEDS: tiZANidine HCL 4 MG TABLET PO SCH (19:41)
[2025-05-07] MEDS: LANTUS PER UNIT CHARGE SC SCH (20:14)
[2025-05-08] MEDS: hydrOXYzine HCl 25 MG TAB PO PRN (00:50)
[2025-05-08 05:08] LABS: Basophils # (auto) 0.03 K/uL (0.00-0.20); Basophils % (auto) 0.2 %; Hematocrit (blood only) 33.6 % (42.0-52.0); Hemoglobin 11.5 g/dl (14.0-18.0); Immature Granulocytes # (auto) 0.07 K/uL (0.01-0.20); Immature Granulocytes % (auto) 0.4 %; Lymphocytes # (auto) 2.71 K/uL (1.20-3.40); Mean Corpuscular Hemoglobin 30.3 pg (25.0-34.0); Mean Corpuscular Hgb Conc 34.2 g/dL (32.0-36.0); Mean Corpuscular Volume 88.7 fL (80.0-100.0); Mean Platelet Volume 8.6 fL (9.4-12.4); Monocytes % (auto) 10.3 %; Neutrophils # (auto) 14.61 K/uL (1.40-6.50); Neutrophils % (auto) 75.1 %; Platelet Count 184 K/uL (130-400); RDW Coefficient of Variation 13.6 % (11.5-14.5); RDW Standard Deviation 44.5 fL (36.4-46.3); Red Blood Count 3.79 M/uL (4.70-6.10); White Blood Count 19.42 K/ul (4.8-10.8)
[2025-05-08 05:22] LABS: BUN Creatinine Ratio 11.3 (10-20); Calcium 8.3 mg/dl (8.6-10.3); Creatinine Clr Calc Pharmacy 122.6 ml/min
[2025-05-08] MEDS: oxyCODONE/ACETAMINOPHEN 5mg/325mg TAB PO PRN (07:42)
[2025-05-08] MEDS: ASPIRIN 81 MG ECTAB PO SCH (07:45)
[2025-05-08] MEDS: ROSUVASTATIN CALCIUM 20 MG TAB PO SCH (07:45)
[2025-05-08] MEDS: PANTOprazole 40 MG TAB PO SCH (07:45)
[2025-05-08] MEDS: lisinopril 40 MG TAB PO SCH (07:46)
[2025-05-08] MEDS: CLOPIDOGREL BISULFATE 75 MG TAB PO SCH (07:46)
[2025-05-08] MEDS: PARoxetine HCL 20 MG TAB PO SCH (07:47)
--- NOTE | 2025-05-08 08:10 | Pulmonology Progress Note ---
Date of Service May 08, 2025 Assessment & Plan (1) PAD (peripheral artery disease): (2) Claudication: (3) Type 2 diabetes mellitus with hyperlipidemia: (4) Tobacco use disorder: (5) Acid reflux disease: (6) Hypertension: (7) Dyslipidemia: (8) Hypoxia: Plan --Peripheral vascular disease On cilostazol 50 twice daily as well as Plavix 75 mg at home S/p bilateral iliac stenting and bilateral femoral endarterectomy with bovine patch on 05/07/[address] Slaughter --Hypoxia Likely likely postop atelectasis Incentive spirometry and oxygen supplementation to keep O2 saturation between 88-92% --Diabetes type 2 Continue with ICU hypoglycemia protocol -- Hypertension On lisinopril 40 as well as Coreg 25 at home -- Coronary artery disease S/p stent back in 2004 On Plavix --Normocytic anemia Monitor H&H --Current smoker > [id number] smoking history, currently smoking half a pack a day Would recommend outpatient PFT as well as screening CAT scan of the chest if not already done --Prophylaxis VTE: None GI: Pantoprazole Lines: Peripheral Diet: Cardiac diabetic Plan: In/out: +3000 mL, urine output 2000 Leukocytosis likely reactive to surgery, continue to monitor Incentive spirometry and oxygen supplementation to keep O2 saturation between 88-92% Consider walk test to see if the patient needs oxygen on exertion SHARAD Lakhani Would recommend outpatient PFT as well as screening CAT scan of the chest if not already done Disposition as per vascular surgery Please note the above document was generated using voice recognition software. It may contain grammatical, syntax or spelling errors.Any formal questions or concerns about the content, text or information contained within the body of this dictation should be directly addressed to the provider for clarification. Admission and Anticipated Discharge Date Admission Date: May 07, 2025 Subjective Patient seen and examined at bedside. No acute distress, no dizziness overnight Saturating 88-89% on room air while sitting on the chair. When I ask him to take deep breaths his saturation did go up to 93-93% Overall he stated he is feeling better. No significant pain in the legs. Has some discomfort towards he has a wound VAC. Appetite, no nausea vomiting No shortness of breath, no chest pain Review of Systems 2 Review of Systems: All systems reviewed & are unremarkable except as noted in Subjective Physical Exam 2 Physical Exam: Constitutional: No acute distress HEENT: EOMI, PERRLA Respiratory system: Decreased air entry bilaterally, no wheeze, no rhonchi, minimal crackles bilaterally CVS: S1-S2 positive, no murmurs or gallops Abdomen: Soft, nontender, nondistended, positive bowel sounds x4, obese Extremities: +2 pulses bilaterally radialis/right dorsalis pedis, +1 pulse left dorsalis pedis and posterior tibialis no cyanosis, no edema Neuro: Awake alert oriented x3 Psych: Normal mood and affect G/U: Positive Lakhani Bilateral groin wound VAC in place with no signs of bleeding Skin: no rashes, warm and dry Lymphatic: no cervical or axillary lymphadenopathy Results & Data Results & Data Vital Signs (Past 12 Hours) Vital Signs Temp Pulse Resp BP Pulse Ox 05/08/25 06:09 71 15 93 05/08/25 06:00 139/84 05/08/25 06:00 139/84 05/08/25 06:00 139/84 05/08/25 05:27 71 19 92 05/08/25 05:00 172/122 H 05/08/25 05:00 172/122 H 05/08/25 05:00 75 19 94 05/08/25 04:15 73 20 92 05/08/25 04:00 36.6 C 05/08/25 04:00 142/97 H 05/08/25 04:00 142/97 H 05/08/25 03:54 72 17 94 05/08/25 03:03 78 20 95 05/08/25 03:00 151/80 H 05/08/25 02:54 75 17 94 05/08/25 02:03 79 22 93 05/08/25 02:00 135/87 05/08/25 02:00 135/87 05/08/25 01:54 78 19 94 05/08/25 01:03 79 24 94 05/08/25 01:00 161/92 H 05/08/25 01:00 161/92 H 05/08/25 01:00 161/92 H 05/08/25 00:42 80 23 94 05/08/25 00:09 82 20 91 05/08/25 00:00 155/87 H 05/07/25 23:57 85 15 90 05/07/25 23:03 84 22 91 05/07/25 23:00 132/77 05/07/25 23:00 132/77 05/07/25 23:00 132/77 05/07/25 22:51 88 25 H 90 05/07/25 22:00 90 18 92 05/07/25 21:00 36.6 C 05/07/25 21:00 93 H 17 90 05/07/25 21:00 148/87 H 05/07/25 21:00 148/87 H 05/07/25 20:12 95 H 20 92 Laboratory Results 05/08/25 04:50 05/08/25 04:50 PG Care Time/CCT Total # of Minutes Spent Total Time Spent with Patient: Total time spent is greater than 50% in coordination of care (as documented) at patient's floor/unit and/or counseling patient: Coding Level of Care Code 01948 SUB INP/OBS CARE 2/35MIN Diagnoses PAD (peripheral artery disease) I73.9 Claudication I73.9 Type 2 diabetes mellitus with hyperlipidemia E11.69; E78.5 Tobacco use disorder F17.200 Acid reflux disease K21.9 Hypertension I10 Dyslipidemia E78.5 Hypoxia R09.02
[2025-05-08] MEDS ORDERED: NON-FORMULARY MEDICATION (Glipizide 10 mg tablet extended release 24hr) PO SCH (09:00)
[2025-05-08 09:54] LABS: Estimated Average Glucose 146 mg/dl; Hemoglobin A1C 6.7 % (4.5-5.6)
--- NOTE | 2025-05-08 12:30 | Pharmacy Report ---
Pharmacy Glycemic Short Note 2 - Date of Service May 08, 2025 - Glycemic Short BSG Results (Last 24 hours): 05/07/25 05/07/25 05/07/25 13:50 16:12 19:35 Glucose POC Glucose 244 H 231 H 248 H 05/07/25 05/08/25 05/08/25 23:28 04:50 07:19 Glucose 203 H POC Glucose 245 H 187 H 05/08/25 10:51 Glucose POC Glucose 207 H OUTPATIENT ANTIDIABETIC REGIMEN: * Tresiba 60 units daily (last 05/06 PM) * Metformin * Glipizide * Ozempic * HbA1c 6.7% on 05/08/25 ASSESSMENT: * 64 yo M with T2DM admitted 05/07 for angiography and endarterectomy. * Dexamethasone 8 mg overriden in OR. Anticipate effects will persist somewhat 05/08 then dissipate * No prior admissions to review at [facility] * Home basal dose may cover some prandial effects. Will start lower with basal insulin for now since starting more aggressive Novolog. * Novolog weight-based severe stress estimate due to high reported basal dose as an outpatient plus dexamethasone as an inpatient PLAN FOR INPATIENT GLYCEMIC CONTROL: * Hold outpatient oral diabetes medications * Basal insulin * Lantus 15-45 units SQ HS * Bolus insulin * NovoLog per scale ACHS or Q6hrs while NPO * Goal Range: Low 110 mg/dL - High 140 mg/dL * Correction Factor: 15 mg/dL/unit * Nutritional / Prandial insulin per carb ratio of 1 unit per 6 grams CHO consumed
[2025-05-08] MEDS: NICOTINE POLACRILEX 2 MG GUM MT PRN (14:23)
[2025-05-08] MEDS: NICOTINE 7 MG/24 HR TDSY TD SCH (14:23)
--- NOTE | 2025-05-08 14:34 | Surgery Progress Note ---
Date of Service May 08, 2025 Assessment & Plan (1) S/P vascular surgery: Plan: Pt now POD #1 after BL UROLOGIC SURGEON endarterectomies and BL MINERVA stenting, doing well post op. Pain under good control. Hgb acceptable, leukocytosis noted, will recheck in AM. VSS. OK for transfer to med/surg. Admission and Anticipated Discharge Date Admission Date: May 07, 2025 Subjective 64 yo m POD #1 after BL UROLOGIC SURGEON endarterectomies and BL MINERVA stenting, seen in f/u t harley. Pt states feeling ok, mild pain in BL groins, but states his legs feel much better than preop. No new complaints. Review of Systems Review of Systems: All systems reviewed & are unremarkable except as noted in HPI & below Physical Exam Constitutional: WD/WN, vitals as above cooperative and comfortable; not in distress Respiratory: normal respiratory effort; no respiratory distress Auscultation: lungs clear to auscultation bilaterally and + diminished lung qasim nds Cardiovascular: Rate/Rhythm: regular rate and regular rhythm Vessels: posterior tibial pulses present (+ doppler), dorsalis pedis pulses present (+ dopppler) and radial pulses present; + abnormal peripheral pulses Extremities: normal capillary refill Gastrointestinal (Abdomen): Inspection/Auscultation: abdomen normal to inspection and normal bowel sounds Percussion/Palpation: abdomen soft; abdomen nontender Musculoskeletal: no cyanosis or clubbing, extremities motor strength 5/5 Skin: no rashes, warm and dry + incision (BL groins prevena, mild tender, minimal ecchymosois) Neurologic: moves all extremities and awake; no focal motor deficits and not confused Psychiatric: A+Ox3, euthymic affect Results & Data Vital Signs (Past 12 Hours) Vital Signs Temp Pulse Resp BP Pulse Ox O2 Del Method 05/08/25 13:00 124/65 05/08/25 13:00 70 20 92 05/08/25 12:51 70 24 92 05/08/25 12:00 125/83 05/08/25 11:54 68 25 H 90 05/08/25 11:28 36.7 C 05/08/25 11:12 68 21 91 05/08/25 11:00 117/66 05/08/25 11:00 117/66 05/08/25 11:00 117/05/08/25 10:51 69 19 91 05/08/25 10:03 70 20 90 05/08/25 10:00 114/60 05/08/25 09:57 71 20 90 05/08/25 09:01 117/57 L 05/08/25 09:00 78 20 90 05/08/25 08:03 75 22 90 Room Air 05/08/25 08:00 149/77 H 05/08/25 08:00 36.8 C 05/08/25 07:39 77 21 90 Room Air 05/08/25 07:06 68 16 94 05/08/25 07:00 136/84 05/08/25 06:09 71 15 93 05/08/25 06:00 139/84 05/08/25 06:00 139/84 05/08/25 06:00 139/84 05/08/25 05:27 71 19 92 05/08/25 05:00 172/122 H 05/08/25 05:00 172/122 H 05/08/25 05:00 75 19 94 05/08/25 04:15 73 20 92 05/08/25 04:00 36.6 C 05/08/25 04:00 142/97 H 05/08/25 04:00 142/97 H 05/08/25 03:54 72 17 94 05/08/25 03:03 78 20 95 05/08/25 03:00 151/80 H 05/08/25 02:54 75 17 94
[2025-05-08] MEDS: metFORMIN HCL 850 MG TAB PO SCH (20:03)
[2025-05-08] MEDS: LANTUS PER UNIT CHARGE SC SCH (20:19)
[2025-05-09 06:43] LABS: Hematocrit (blood only) 30.4 % (42.0-52.0); Hemoglobin 10.4 g/dl (14.0-18.0); Mean Corpuscular Hemoglobin 30.2 pg (25.0-34.0); Mean Corpuscular Hgb Conc 34.2 g/dL (32.0-36.0); Mean Corpuscular Volume 88.4 fL (80.0-100.0); Mean Platelet Volume 8.6 fL (9.4-12.4); Platelet Count 172 K/uL (130-400); RDW Coefficient of Variation 13.3 % (11.5-14.5); RDW Standard Deviation 43.2 fL (36.4-46.3); Red Blood Count 3.44 M/uL (4.70-6.10); White Blood Count 17.54 K/ul (4.8-10.8)
[2025-05-09 07:13] VITALS: BP 127/72; PULSE 72; RESP 16; TEMP 97.9; O2SAT 92
[2025-05-09 08:19] LABS: Basophils # (auto) 0.07 K/uL (0.00-0.20); Basophils % (auto) 0.4 %; Eosinophils # (auto) 0.25 K/uL (0.00-0.50); Eosinophils % (auto) 1.4 %; Immature Granulocytes # (auto) 0.07 K/uL (0.01-0.20); Immature Granulocytes % (auto) 0.4 %; Lymphocytes # (auto) 5.06 K/uL (1.20-3.40); Lymphocytes % (auto) 28.8 %; Monocytes # (auto) 1.78 K/uL (0.11-0.59); Monocytes % (auto) 10.1 %; Neutrophils # (auto) 10.31 K/uL (1.40-6.50); Neutrophils % (auto) 58.9 %
--- NOTE | 2025-05-09 14:04 | Pharmacy Report ---
Pharmacy Glycemic Short Note 2 - Date of Service May 09, 2025 - Glycemic Short BSG Results (Last 24 hours): 05/08/25 05/08/25 05/09/25 16:09 20:05 07:38 POC Glucose 187 H 177 H 93 05/09/25 11:36 POC Glucose 151 H OUTPATIENT ANTIDIABETIC REGIMEN: * Tresiba 60 units daily (last 05/06 PM) * Metformin * Glipizide * Ozempic * HbA1c 6.7% on 05/08/25 ASSESSMENT: 05/09: * POD # 2 s/p angiography and endarterectomy * [place] received 48 units of bolus SC insulin yesterday, no basal. Metformin was resumed by Vascular service. * Fasting BSG of 93 mg/dL. Expect fasting to trend upward based on home usage of Tresiba 60 units daily. Will trial dose of 20-25 units at HS. * Anticipate improvement in post prandial BSGs given steroid effect has worn off. No change to Novolog today. 05/08: * 64 yo M with T2DM admitted 05/07 for angiography and endarterectomy. * Dexamethasone 8 mg overriden in OR. Anticipate effects will persist somewhat 05/08 then dissipate * No prior admissions to review at [facility] * Home basal dose may cover some prandial effects. Will start lower with basal insulin for now since starting more aggressive Novolog. * Novolog weight-based severe stress estimate due to high reported basal dose as an outpatient plus dexamethasone as an inpatient PLAN FOR INPATIENT GLYCEMIC CONTROL: * Hold outpatient oral diabetes medications * Basal insulin * Lantus 20-25 units SQ HS * Bolus insulin * NovoLog per scale ACHS or Q6hrs while NPO * Goal Range: Low 110 mg/dL - High 140 mg/dL * Correction Factor: 15 mg/dL/unit * Nutritional / Prandial insulin per carb ratio of 1 unit per 6 grams CHO consumed
--- NOTE | 2025-05-09 14:37 | Surgery Progress Note ---
Date of Service May 09, 2025 Assessment & Plan (1) S/P vascular surgery: Plan: Doing well will d/c today Admission and Anticipated Discharge Date Admission Date: May 07, 2025 Subjective Patient claims he no longer has any pain in his feet. Only complaint is incisional pain Physical Exam Constitutional: WD/WN, vitals as above Respiratory: normal respiratory effort; no respiratory distress Cardiovascular: Rate/Rhythm: regular rate and regular rhythm Extremities: normal capillary refill excellent pedal dopplers Skin: + incision (prevena dressings in place) Neurologic: CN's II-XI intact bilaterally and moves all extremities Psychiatric: A+Ox3, euthymic affect Results & Data Vital Signs (Past 12 Hours) Vital Signs Temp Pulse Resp BP Pulse Ox O2 Del Method 05/09/25 13:43 Room Air 05/09/25 07:10 36.6 C 72 16 127/72 92 Room Air
--- NOTE | 2025-05-09 14:43 | Discharge Summary ---
Date of Service May 09, 2025 Admission HPI Per Admitting Provider Name: JAZ MAURICIO Patient Number: [id number] : 1960 Date of Service: 04/10/2025 Chief Complaint: _New patient consultation for peripheral arterial disease and aortoiliac disease HPI: _Mr. Mauricio is an elderly male who presents to Dr. Slaughter vascular surgery clinic today as a new patient in consultation for severe peripheral arterial disease and aortoiliac disease causing lifestyle limiting claudication. Patient states that he began having symptoms about 18 months ago. He describes this as a tightness/pain in his left calf which then migrates into his left thigh as well if continues ambulating. He has some discomfort in his right hip around the same time, but feels that his left leg is more limiting. He is able to ambulate less than 50 yards before needing to stop. He lives in a second story apartment, and has stopped leaving his apartment more than once a day due to having to climb 2 sets of stairs and the pain that he knows this will cause. After resting for 5 minutes or so, he is able to ambulate again. He has found this to be very limiting and his overall activity has significantly decreased. He smoked 2 packs a day for most of his adult life, and has only recently reduced that down to 10 cigarettes daily. He was started on cilostazol, but has not had any improvement with this medication. He denies nonhealing wounds or ulcerations, discoloration of his feet or toes, or rest pain at night. He denies headache, fever, chest pain, shortness of breath, abdominal pain, nausea, vomiting, other concerns. Review of systems: A total of 14 systems were reviewed and are negative aside from what is related in his HPI Imaging: Patient's CTA abdomen pelvis with runoff done at [facility] in December 2024 was reviewed, as well as his recent diagnostic aortogram/angiogram of the bilateral lower extremities. Images appear to confirm a proximal right common iliac artery stenosis, and bilateral common femoral artery severe stenoses, significantly worse in the left than the right. He does have bilateral SFA disease as well. Additionally he has two-vessel runoff to the feet. Current Home Meds: (Last Updated 04/10 08:00) PARoxetine 80 mg PO Daily HAZARDOUS MEDICATION | tablet: green | suspension: green - B Tejas 04/09 16:03 acetaminophen-hydrocodone (acetaminophen-hydrocodone 325 mg-5 mg oral tablet) 1 tab PO tid PRN: as needed for pain aspirin (aspirin 81 mg oral delayed release tablet) 81 mg PO Daily carvedilol 25 mg PO bid cilostazol (cilostazol 50 mg oral tablet) 50 mg PO bid clopidogrel (clopidogrel 75 mg oral tablet) 75 mg PO Daily glipiZIDE (glipiZIDE 10 mg oral tablet, extended release) 10 mg PO Daily hydrOXYzine 50 mg PO tid PRN: as needed for anxiety insulin degludec (Tresiba FlexTouch 100 units/mL subcutaneous solution) 60 unit subQ Daily lisinopril 40 mg PO Daily metFORMIN 850 mg PO bid nitroglycerin 0.4 mg SL q5min PRN: as needed for chest pain omeprazole 40 mg PO Daily rOPINIRole (rOPINIRole 0.25 mg oral tablet) 0.25 mg PO Daily rosuvastatin (rosuvastatin 10 mg oral tablet) 40 mg PO Daily semaglutide (semaglutide 0.25 mg/0.5 mL (0.25 mg dose) subcutaneous solution) 0. 25 mg subQ q7days Wegovy tadalafil (tadalafil 20 mg oral tablet) 20 mg PO Daily PRN: as needed for erectile dysfunction tiZANidine 6 mg PO Daily traZODone 200 mg PO Daily Allergies and Sensitivities: gabapentin(weakness, fall) clonazePAM(addiction) Past Medical History: Problems: Aortoiliac stenosis Hypertension Hyperlipidemia Diabetes mellitus Tobacco abuse CAD (coronary artery disease) PAD (peripheral artery disease) Gastroesophageal reflux disease hypercholesterolemia Surgical history: Positive for cardiac catheterization with stent placement in 2004, tonsillectomy adenoidectomy Family history: Positive for brother with myocardial infarction, a son with asthma and depression/anxiety. His mother did have peripheral arterial disease and ended up with a leg amputation. Social history: Patient continues to smoke cigarettes daily, at this point smoking 10 cigarettes/day, previously smoking 2 packs a day. He denies alcohol or illicit drug use. He is currently and lives alone and is on disability. OBJECTIVE Vitals: Last Updated 04/10/25 08:09 Date Temp BP Location Pulse RR SpO2 Pain 04/10/25 134/80 Right Arm 61 94 04/10/25 150/78 Left Arm Vital Signs are the last 3 documented. No Orthostatic Data Available Height and Weight: Last Updated 04/10/25 08:09 Date BMI Wt(kg) Wt(lb) Method Ht(cm) (ft-in) Method 04/10/25 29.15 93.4 205 Standing Scale 179 5-10 Heights and Weights are the last 3 documented. Physical Exam Constitutional: In general patient is a healthy-appearing well-nourished well- developed elderly male in no distress. He is alert and oriented without any focal deficits. Head is normocephalic and atraumatic. Eyes are EOMI. Trachea is midline. Carotids do not demonstrate bruit. Heart is regular, lungs are decreased significantly throughout but clear bilaterally. Abdomen soft nontender with normoactive bowel sounds in all 4 quadrants. There is no pulsatile mass appreciable. Bilateral brachial and radial pulses are +3. Femoral pulses are nonpalpable, bilateral lower extremity pulses are nonpalpable. Right lower extremity capillary refill is 3 seconds, left lower extremity capillary refill is 5 seconds. He does continue to have hair growth on the feet bilaterally and there is no sign of distal ischemia or ulcerations. There is no edema ASSESSMENT: _ PLAN: _ 1 ) _peripheral arterial disease Patient does have severe femoral artery disease, with stenoses at his common femoral artery/proximal SFA's, which would likely benefit from femoral endarterectomies. Additionally he has a significant stenosis of his right common iliac artery on imaging. We would recommend that this undergo stenting, with the possibility to do bilateral kissing iliac stents if needed. Patient is in the office today with a family member. The bilateral CONTINUOUS LOFT OPERATOR endarterectomy and angiogram with bilateral iliac stent placement procedure was discussed at length with the patient, as were the benefits, alternatives, and consequences of refusing the surgery. The risks of this procedure including but not limited to bleeding, infection, need for further surgery, vessel trauma, blood clots, loss of limb, , heart attack, reaction to medication or dye including allergic reaction or kidney failure, were discussed with the patient by myself at Dr. Slaughter's request. Patient expressed understanding and agreement to proceed. This will be scheduled in the near future at the patient's convenience. We will have him undergo cardiac clearance from his manager assurance prior to the procedure. Patient is advised to call with any questions or concerns. He is agreeable to this plan. Thank you for letting us participate in the care of this patient. I have personally spent_50__ minutes performing [id number] and [id number] activities on this date of service.Time does not include separately reported services. Activities Include: _x_ review of the medical record _x_ obtaining a history _x_ physical exam/evaluation __ review labs _x_ review radiology reports _x_ counseling/educating patient/family/caregiver _x_ discussion/referral to other healthcare professional x__ documenting care in the medical record __ independent interpretation of results __ communication of results to patient/family/caregiver _x_ coordination of care Signature Line Electronic Signature on File CC: Cristiano Borrero DO [facility] [address] [facility] [facility] [id number] * CC: Balbir Viramontes MD [address] [facility] [address] * CC: Cielo Bone PA-C [facility] [address] [place] [address] * Electronically Reviewed/Signed by: Torie Weston PA-C Author Signature Dt/Tm:04/10/2025 09:12 AM [facility] [address] [place] [address] Result Type: HVI Outpt Note Date of Service: April 10, 2025 08:55 EDT Authorization Status: Final Author or Import Date: JONES Weston Lynn on April 10, 2025 09:12 EDT Verified By: JONES Weston Lynn on April 10, 2025 09:12 EDT Encounter info: [id number], [place] [id number], Clinic, 04/10/2025 - 04/10/2025 Admission Exam Per Admitting Provider Constitutional: In general patient is a healthy-appearing well-nourished well- developed elderly male in no distress. He is alert and oriented without any focal deficits. Head is normocephalic and atraumatic. Eyes are EOMI. Trachea is midline. Carotids do not demonstrate bruit. Heart is regular, lungs are decreased significantly throughout but clear bilaterally. Abdomen soft nontender with normoactive bowel sounds in all 4 quadrants. There is no pulsatile mass appreciable. Bilateral brachial and radial pulses are +3. Femoral pulses are nonpalpable, bilateral lower extremity pulses are nonpalpable. Right lower extremity capillary refill is 3 seconds, left lower extremity capillary refill is 5 seconds. He does continue to have hair growth on the feet bilaterally and there is no sign of distal ischemia or ulcerations. There is no edema Principal Diagnosis aortoiliac and bilateral common femoral artery stensosis Discharge Exam Constitutional WD/WN, vitals as above Respiratory normal respiratory effort; no respiratory distress Cardiovascular Rate/Rhythm: regular rate and regular rhythm Extremities: normal capillary refill Skin + incision (prevena dressings in place) Neurologic CN's II-XI intact bilaterally and moves all extremities Psychiatric A+Ox3, euthymic affect Discharge Data Allergies Allergy/AdvReac Type Severity Reaction Status Date / Time clonazepam AdvReac Intermediate Hx Verified 05/07/25 06:47 addiction gabapentin AdvReac Intermediate Weakness, Uncoded 05/07/25 06:47 fall, brain fog on 600mg QID Procedures Performed Operation Date: 05/07/25 09:00 Actual Procedures p Bilateral Angiography with Iliac Stenting(Bilateral) - Allen Slaughter MD s Right Common and Superficial Femoral Artery Endarterectomy with Bovine Patch, Left Common, Superficial, and Profunda Femoral Artery Endarterectomy with Bovine Patch(Bilateral) - Allen Slaughter MD Ordered Studies 05/07/25 08:52 EV angio LE BI Routine Hospital Course (1) S/P vascular surgery: Doing well will d/c today Total Time Total Time Spent Total Time Spent (In Minutes): x Discharge Plan Discharge Items Patient Disposition: Home - Self-Care Reason For Visit: Aortoiliac Occlusive Disease Discharge Diagnosis: Aortoiliac occlusive disease and common femoral artery stenosis bilateral Activity: Per Instructions section Non-emergency contact: Surgeon Call non-emergency contact if: your temperature is above 101.5, your wound has increased redness, your wound has increased drainage and your wound pain has increased Follow-up/Referrals: Cristiano Borrero DO [Primary Care Provider] - 05/16/25 11:30 am (Please arrive 15 min. before your scheduled appointment. Thank you!) Diet: Carb Consistent or DM2 and Heart Healthy Addtl Attending Provider Instructions: ACTIVITY RECOMMENDATIONS: Leave dressings in place until suction no longer working. then remove dressings and discard entire dressing and battery packs SPECIAL CARE INSTRUCTIONS: Call your doctor if: * Temperature above 101 degrees * Pain not relieved by pain medicine ordered * There is increased drainage or redness from any incision * You have any unanswered questions or concerns. Call [phone] to schedule a follow up appointment if one not already scheduled. Pending Studies at Discharge: No Stand-Alone Forms: My [facility], Smoking Cessation Medications and DC Order Prescriptions: Continued (DME) blood-glucose meter [OneTouch Verio Meter] Misc See Rx Instructions .Route Qty: 1 0RF Rx Instructions: As directed to test blood sugar two times a day (DME) OneTouch Verio test strips Strip See Dose Instructions .ROUTE .MEDSUPPLY Qty: 100 5RF Dose Instruction: As directed Rx Instructions: Test blood sugar two times a day paroxetine HCl 40 mg tablet 80 mg PO DAILY Qty: 180 3RF nitroglycerin 0.4 mg tablet, sublingual 0.4 mg sublingual Q5M PRN (Reason: chest pain) Qty: 20 0RF Rx Instructions: do not exceed 3 doses per episode semaglutide 0.25 mg or 0.5 mg (2 mg/3 mL) pen injector 0.25 mg subcut Q7D 90 Days Qty: 4.784 5RF insulin degludec [Tresiba FlexTouch U-100] 100 unit/mL (3 mL) insulin pen 60 unit subcut DAILY Qty: 15 2RF (DME) pen needle, diabetic [BD Ultra-Fine Jacinta Pen Needle] 32 gauge x 5/32" needle See Dose Instructions .ROUTE .MEDSUPPLY Qty: 100 3RF Dose Instruction: As directed Rx Instructions: As directed with insulin cilostazol 50 mg tablet 50 mg PO BID Qty: 180 3RF omeprazole 40 mg capsule,delayed release(DR/EC) 40 mg PO DAILY Qty: 90 3RF clopidogrel 75 mg tablet 75 mg PO DAILY Qty: 90 3RF rosuvastatin 40 mg tablet 40 mg PO DAILY Qty: 90 3RF hydroxyzine pamoate 50 mg capsule 50 mg PO TID PRN (Reason: anxiety) Qty: 270 3RF varenicline tartrate 0.5 mg (11)- 1 mg (42) tablets,dose pack 1 ea PO .COMPLEX Qty: 53 0RF Rx Instructions: 1 ea orally; Follow pack instructions varenicline tartrate 1 mg tablet 1 mg PO BID Qty: 56 3RF tizanidine 6 mg capsule 6 mg PO HS Qty: 90 3RF lisinopril 40 mg tablet 40 mg PO DAILY Qty: 90 3RF carvedilol 25 mg tablet 25 mg PO BID Qty: 180 1RF tadalafil [Cialis] 20 mg tablet 20 mg PO DAILY PRN (Reason: sexual activity) Qty: 14 0RF Rx Instructions: administer approximately 60min before sexual activity; do not use more than 1 dose per 24hrs aspirin 81 mg tablet 81 mg PO DAILY glipizide 10 mg tablet extended release 24hr 10 mg PO DAILY Qty: 90 3RF (DME) lancets 33 gauge misc See Dose Instructions .ROUTE .MEDSUPPLY Qty: 100 11RF Dose Instruction: As directed Rx Instructions: Test blood sugar two times a day metformin 850 mg tablet 850 mg PO BID hydrocodone-acetaminophen 5-325 mg tablet 1 tab PO Q8H PRN (Reason: pain) Qty: 90 0RF Rx Instructions: DNFB 04-20-25 Discharge Orders: Discharge Order (Routine); Ordered 05/09/25 Ordered By: Allen Snider/Other Patient Handouts: Managing Type 2 Diabetes Admission Data Admit Date/Time: 05/07/25 07:44 Attending Provider: Allen Slaughter Admit Provider: Allen Slaughter Primary Care Provider: Cristiano Borrero
== END 2025-05-09 16:04 | disposition home or self-care (01) | DRG 253 ==
LOC: ASU 06:25 → 1E 07:44 → 3N 05-08 17:24